=== PATIENT | female | born 1950 | race Asian ===

== ENCOUNTER → 2016-11-06 | Outpatient (CLI) | payer OTHER ==
[~2016-11-06] MED LIST: ASPI-496 PO; ATOR10TA PO; HYDR-3138 PO; HYDR10TA4 PO; INSU100C5 SQ; INSU100V8 SQ; LISI1TAB3 PO; [UNRECOGNIZED DRUG - OTHER] NS
== END | disposition home or self-care (01) ==
LOC: CFH 07:03
PROVIDERS: ATTEND Internal Medicine Cardiovascular Disease
DX: I51.7 Cardiomegaly (principal); I37.1 Nonrheumatic pulmonary valve insufficiency; I08.1 Rheumatic disorders of both mitral and tricuspid valves; I70.0 Atherosclerosis of aorta; J90 Pleural effusion, not elsewhere classified; R91.8 Other nonspecific abnormal finding of lung field; I10 Essential (primary) hypertension; E11.9 Type 2 diabetes mellitus without complications; F17.200 Nicotine dependence, unspecified, uncomplicated
CPT/HCPCS: 71020; 93306

== ENCOUNTER 2016-11-16 12:50 | Inpatient (IN) | payer OTHER, MEDICARE ==
[~2016-11-16] VITALS: Ht 160 cm; Wt 83.1 kg
[2016-11-16] MEDS ORDERED: CEFTRIAXONE PMX 1GM/50ML 50 ML IVPB ONE (14:00)
[2016-11-16 14:21] LABS: BLOOD UREA NITROGEN 20 mg/dL (7-18)
[2016-11-16 14:25] LABS: ASPARTATE AMINO TRANSFERASE 15 U/L (15-37)
[2016-11-16] MEDS ORDERED: OMNIPAQUE 350 MG/ML, 100ML BOTTLE ONE (15:24)
[2016-11-16] MEDS: NICOTINE 21 MG/24 HR PATCH.TD24 TD SCH (18:00)
[2016-11-16] MEDS ORDERED: ACETAMINOPHEN 325 MG TABLET PO PRN (18:00)
[2016-11-16] MEDS: AZITHROMYCIN 500 MG in SODIUM CHLORIDE 0.9% 250 ML IV SCH (18:00)
[2016-11-16] MEDS: ENOXAPARIN 40 MG/0.4 ML SQ SCH (18:00)
[2016-11-16] MEDS: INSULIN ASPART 100 UNITS/ML, PEN SQ-INSULIN SCH ×2 (18:00→21:00)
[2016-11-16] MEDS ORDERED: ONDANSETRON 2MG/ML, 2ML IVPush PRN (18:00)
[2016-11-16] MEDS ORDERED: HYDROcodone/APAP 5/325 TABLET PO PRN (18:00)
[2016-11-16] MEDS ORDERED: POLYETHYLENE GLYCOL 17 GM PACKET PO PRN (18:00)
[2016-11-16] MEDS ORDERED: CEFTRIAXONE 1,000 MG in SODIUM CHLORIDE 0.9% 50 ML IV SCH (18:00)
[2016-11-16 18:18] LABS: BLOOD UREA NITROGEN 18 mg/dL (7-18)
[2016-11-16] MEDS ORDERED: METH750T2 PO (19:50)
[2016-11-16 19:52] VITALS: BP 134/83
[2016-11-16 20:00] VITALS: BP 134/83
[2016-11-16] MEDS ORDERED: ALBUTEROL SULFATE 2.5 MG/3 ML ONE (20:29)
[2016-11-16] MEDS: INSULIN DETEMIR 100 UNITS/ML, PEN SQ-INSULIN SCH (21:00)
[2016-11-16] MEDS ORDERED: ALBUTEROL SULFATE 2.5 MG/3 ML NPPB PRN (21:30)
[2016-11-17 02:13] VITALS: BP 132/82
[2016-11-17 06:31] LABS: BLOOD UREA NITROGEN 17 mg/dL (7-18)
[2016-11-17 06:34] LABS: ASPARTATE AMINO TRANSFERASE 14 U/L (15-37)
[2016-11-17] MEDS: INSULIN ASPART 100 UNITS/ML, PEN SQ-INSULIN SCH ×4 (07:00→20:58)
[2016-11-17 07:23] VITALS: BP 138/85
[2016-11-17] MEDS: PANTOPROZOLE 40MG TABLET PO SCH (08:48)
[2016-11-17] MEDS: ATORVASTATIN 10 MG TABLET PO SCH (08:48)
[2016-11-17 14:17] VITALS: BP 127/92
[2016-11-17] MEDS: CEFTRIAXONE PMX 1GM/50ML 50 ML IV SCH (16:05)
[2016-11-17] MEDS: NICOTINE 21 MG/24 HR PATCH.TD24 TD SCH (18:10)
[2016-11-17] MEDS: ENOXAPARIN 40 MG/0.4 ML SQ SCH (18:11)
[2016-11-17] MEDS: AZITHROMYCIN 500 MG in SODIUM CHLORIDE 0.9% 250 ML IV SCH (18:12)
[2016-11-17 18:40] VITALS: BP 138/83
[2016-11-17] MEDS: INSULIN DETEMIR 100 UNITS/ML, PEN SQ-INSULIN SCH (20:57)
[2016-11-18] VITALS (7 sets, daily range): BP systolic 121–154; BP diastolic 59–83
[2016-11-18] MEDS: morphine SULFATE 10 MG/ML, 1ML IVPush PRN ×2 (01:12→23:12)
[2016-11-18] MEDS ORDERED: LIDOCAINE 2%, 20ML ONE (07:46)
[2016-11-18] MEDS ORDERED: LIDOCAINE GEL 2%, 5ML ONE (07:46)
[2016-11-18] MEDS ORDERED: LIDOCAINE 4% TOPICAL SOLUTION 50 ML ONE (07:46)
[2016-11-18] MEDS ORDERED: EPINEPHRINE SYRINGE 0.1 MG/ML, 10ML ONE (07:46)
[2016-11-18] MEDS: INSULIN ASPART 100 UNITS/ML, PEN SQ-INSULIN SCH ×4 (08:09→20:36)
[2016-11-18] MEDS: LISINOPRIL 10 MG TABLET PO SCH (08:23)
[2016-11-18] MEDS: ATORVASTATIN 10 MG TABLET PO SCH (08:23)
[2016-11-18] MEDS: HYDROCHLOROTHIAZIDE 12.5 MG CAPSULE PO SCH (08:24)
[2016-11-18] MEDS: PANTOPROZOLE 40MG TABLET PO SCH (08:24)
[2016-11-18] MEDS: INSULIN DETEMIR 100 UNITS/ML, PEN SQ-INSULIN SCH ×2 (14:08→20:37)
[2016-11-18] MEDS ORDERED: MIDAZOLAM 1 MG/ML, 5ML ONE (14:27)
[2016-11-18] MEDS ORDERED: FENTANYL PF 100 MCG/2ML ONE (14:27)
[2016-11-18] MEDS: ENOXAPARIN 40 MG/0.4 ML SQ SCH (17:16)
[2016-11-18] MEDS: CEFTRIAXONE PMX 1GM/50ML 50 ML IV SCH (17:26)
[2016-11-18] MEDS: NICOTINE 21 MG/24 HR PATCH.TD24 TD SCH (17:34)
[2016-11-18] MEDS: AZITHROMYCIN 500 MG in SODIUM CHLORIDE 0.9% 250 ML IV SCH (17:58)
[2016-11-19 02:17] VITALS: BP 139/79
[2016-11-19] MEDS: INSULIN ASPART 100 UNITS/ML, PEN SQ-INSULIN SCH ×4 (07:00→20:16)
[2016-11-19 08:20] VITALS: BP 144/77
[2016-11-19] MEDS: ATORVASTATIN 10 MG TABLET PO SCH (08:33)
[2016-11-19] MEDS: HYDROCHLOROTHIAZIDE 12.5 MG CAPSULE PO SCH (08:33)
[2016-11-19] MEDS: LISINOPRIL 10 MG TABLET PO SCH (08:33)
[2016-11-19] MEDS: INSULIN DETEMIR 100 UNITS/ML, PEN SQ-INSULIN SCH ×2 (08:34→20:16)
[2016-11-19] MEDS: PANTOPROZOLE 40MG TABLET PO SCH (08:34)
[2016-11-19 13:10] VITALS: BP 148/73
[2016-11-19] MEDS: CEFTRIAXONE PMX 1GM/50ML 50 ML IV SCH (15:37)
[2016-11-19] MEDS: NICOTINE 21 MG/24 HR PATCH.TD24 TD SCH (18:13)
[2016-11-19] MEDS: AZITHROMYCIN 500 MG in SODIUM CHLORIDE 0.9% 250 ML IV SCH (18:13)
[2016-11-19] MEDS: ENOXAPARIN 40 MG/0.4 ML SQ SCH (18:13)
[2016-11-19 19:41] VITALS: BP 146/84
[2016-11-19] MEDS: morphine SULFATE 10 MG/ML, 1ML IVPush PRN (22:57)
[2016-11-20 00:51] VITALS: BP 131/66
[2016-11-20] MEDS: INSULIN ASPART 100 UNITS/ML, PEN SQ-INSULIN SCH ×4 (07:00→20:54)
[2016-11-20] MEDS: INSULIN DETEMIR 100 UNITS/ML, PEN SQ-INSULIN SCH ×3 (08:26→20:53)
[2016-11-20] MEDS: ATORVASTATIN 10 MG TABLET PO SCH (08:27)
[2016-11-20] MEDS: HYDROCHLOROTHIAZIDE 12.5 MG CAPSULE PO SCH (08:27)
[2016-11-20] MEDS: LISINOPRIL 10 MG TABLET PO SCH (08:27)
[2016-11-20] MEDS: PANTOPROZOLE 40MG TABLET PO SCH (08:27)
[2016-11-20 08:30] VITALS: BP 151/85
[2016-11-20] MEDS: methylPREDNISolone SOD SUCC 125 MG/2 ML IVPush SCH ×2 (12:42→20:52)
[2016-11-20 14:51] VITALS: BP 137/83
[2016-11-20] MEDS ORDERED: NALOXONE 1 MG/ML, 2ML ONE (15:58)
[2016-11-20] MEDS ORDERED: FENTANYL PF 100 MCG/2ML ONE (15:58)
[2016-11-20] MEDS: ENOXAPARIN 40 MG/0.4 ML SQ SCH (17:23)
[2016-11-20] MEDS: CEFTRIAXONE PMX 1GM/50ML 50 ML IV SCH (17:23)
[2016-11-20] MEDS: NICOTINE 21 MG/24 HR PATCH.TD24 TD SCH (17:23)
[2016-11-20 18:26] VITALS: BP 130/76
[2016-11-20] MEDS: AZITHROMYCIN 500 MG in SODIUM CHLORIDE 0.9% 250 ML IV SCH (18:36)
[2016-11-20] MEDS: morphine SULFATE 10 MG/ML, 1ML IVPush PRN (23:04)
[2016-11-21 02:00] VITALS: BP 129/80
[2016-11-21] MEDS: ATORVASTATIN 10 MG TABLET PO SCH (07:47)
[2016-11-21] MEDS: PANTOPROZOLE 40MG TABLET PO SCH (07:47)
[2016-11-21] MEDS: methylPREDNISolone SOD SUCC 125 MG/2 ML IVPush SCH ×2 (07:47→20:25)
[2016-11-21] MEDS: LISINOPRIL 10 MG TABLET PO SCH (07:47)
[2016-11-21] MEDS: HYDROCHLOROTHIAZIDE 12.5 MG CAPSULE PO SCH (07:47)
[2016-11-21] MEDS: INSULIN DETEMIR 100 UNITS/ML, PEN SQ-INSULIN SCH ×2 (07:48→20:26)
[2016-11-21] MEDS: INSULIN ASPART 100 UNITS/ML, PEN SQ-INSULIN SCH ×4 (07:49→20:26)
[2016-11-21 08:00] VITALS: BP 156/68
[2016-11-21 13:34] VITALS: BP 134/84
[2016-11-21] MEDS: CEFTRIAXONE PMX 1GM/50ML 50 ML IV SCH (14:54)
[2016-11-21] MEDS: AZITHROMYCIN 500 MG in SODIUM CHLORIDE 0.9% 250 ML IV SCH (17:40)
[2016-11-21] MEDS: ENOXAPARIN 40 MG/0.4 ML SQ SCH (17:40)
[2016-11-21] MEDS: NICOTINE 21 MG/24 HR PATCH.TD24 TD SCH (17:41)
[2016-11-21 19:30] VITALS: BP 152/80
[2016-11-21] MEDS: morphine SULFATE 10 MG/ML, 1ML IVPush PRN (22:43)
[2016-11-22 01:25] VITALS: BP 152/95
[2016-11-22 07:20] VITALS: BP 158/83
[2016-11-22] MEDS: INSULIN ASPART 100 UNITS/ML, PEN SQ-INSULIN SCH ×4 (08:00→20:16)
[2016-11-22] MEDS: methylPREDNISolone SOD SUCC 125 MG/2 ML IVPush SCH ×2 (08:03→20:16)
[2016-11-22] MEDS: LISINOPRIL 10 MG TABLET PO SCH (08:04)
[2016-11-22] MEDS: PANTOPROZOLE 40MG TABLET PO SCH (08:04)
[2016-11-22] MEDS: ATORVASTATIN 10 MG TABLET PO SCH (08:04)
[2016-11-22] MEDS: HYDROCHLOROTHIAZIDE 12.5 MG CAPSULE PO SCH (08:04)
[2016-11-22] MEDS: INSULIN DETEMIR 100 UNITS/ML, PEN SQ-INSULIN SCH ×2 (08:05→20:16)
[2016-11-22 13:24] VITALS: BP 164/90
[2016-11-22] MEDS: CEFTRIAXONE PMX 1GM/50ML 50 ML IV SCH (15:52)
[2016-11-22 18:22] VITALS: BP 159/93
[2016-11-22] MEDS: NICOTINE 21 MG/24 HR PATCH.TD24 TD SCH (18:29)
[2016-11-22] MEDS: ENOXAPARIN 40 MG/0.4 ML SQ SCH (18:29)
[2016-11-22] MEDS: AZITHROMYCIN 500 MG in SODIUM CHLORIDE 0.9% 250 ML IV SCH (18:31)
[2016-11-22] MEDS: morphine SULFATE 10 MG/ML, 1ML IVPush PRN (21:14)
[2016-11-23 01:40] VITALS: BP 148/84
[2016-11-23 06:56] VITALS: BP 142/87
[2016-11-23] MEDS: INSULIN ASPART 100 UNITS/ML, PEN SQ-INSULIN SCH ×4 (07:55→21:44)
[2016-11-23] MEDS: methylPREDNISolone SOD SUCC 125 MG/2 ML IVPush SCH ×2 (07:55→21:43)
[2016-11-23] MEDS: HYDROCHLOROTHIAZIDE 12.5 MG CAPSULE PO SCH (07:55)
[2016-11-23] MEDS: INSULIN DETEMIR 100 UNITS/ML, PEN SQ-INSULIN SCH ×2 (07:55→21:44)
[2016-11-23] MEDS: ATORVASTATIN 10 MG TABLET PO SCH (07:56)
[2016-11-23] MEDS: PANTOPROZOLE 40MG TABLET PO SCH (07:56)
[2016-11-23] MEDS: LISINOPRIL 10 MG TABLET PO SCH (07:56)
[2016-11-23 14:33] VITALS: BP 139/85
[2016-11-23] MEDS: CEFTRIAXONE PMX 1GM/50ML 50 ML IV SCH (15:08)
[2016-11-23] MEDS: ENOXAPARIN 40 MG/0.4 ML SQ SCH (18:04)
[2016-11-23] MEDS: AZITHROMYCIN 500 MG in SODIUM CHLORIDE 0.9% 250 ML IV SCH (18:04)
[2016-11-23] MEDS: NICOTINE 21 MG/24 HR PATCH.TD24 TD SCH (18:04)
[2016-11-23 18:33] VITALS: BP 143/84
[2016-11-23] MEDS: morphine SULFATE 10 MG/ML, 1ML IVPush PRN (22:37)
[2016-11-24 00:58] VITALS: BP 156/97
[2016-11-24] MEDS: methylPREDNISolone SOD SUCC 125 MG/2 ML IVPush SCH ×2 (08:22→20:51)
[2016-11-24] MEDS: INSULIN DETEMIR 100 UNITS/ML, PEN SQ-INSULIN SCH ×2 (08:22→20:52)
[2016-11-24] MEDS: HYDROCHLOROTHIAZIDE 12.5 MG CAPSULE PO SCH (08:23)
[2016-11-24] MEDS: ATORVASTATIN 10 MG TABLET PO SCH (08:23)
[2016-11-24] MEDS: LISINOPRIL 10 MG TABLET PO SCH (08:23)
[2016-11-24] MEDS: PANTOPROZOLE 40MG TABLET PO SCH (08:23)
[2016-11-24] MEDS: INSULIN ASPART 100 UNITS/ML, PEN SQ-INSULIN SCH ×4 (08:24→20:52)
[2016-11-24 08:30] VITALS: BP 138/78
[2016-11-24 14:07] VITALS: BP 148/84
[2016-11-24] MEDS: CEFTRIAXONE PMX 1GM/50ML 50 ML IV SCH (15:11)
[2016-11-24 18:46] VITALS: BP_SYST 167; BP_SYST 173; BP_DIAS 105; BP_DIAS 87
[2016-11-24] MEDS: AZITHROMYCIN 500 MG in SODIUM CHLORIDE 0.9% 250 ML IV SCH (20:51)
[2016-11-24] MEDS: NICOTINE 21 MG/24 HR PATCH.TD24 TD SCH (20:51)
[2016-11-24] MEDS: ENOXAPARIN 40 MG/0.4 ML SQ SCH (20:52)
[2016-11-24] MEDS: morphine SULFATE 10 MG/ML, 1ML IVPush PRN (21:53)
[2016-11-25 01:03] VITALS: BP 156/95
[2016-11-25] MEDS: morphine SULFATE 10 MG/ML, 1ML IVPush PRN ×2 (01:03→20:44)
[2016-11-25] MEDS: PANTOPROZOLE 40MG TABLET PO SCH (08:57)
[2016-11-25] MEDS: LISINOPRIL 10 MG TABLET PO SCH (08:57)
[2016-11-25] MEDS: HYDROCHLOROTHIAZIDE 12.5 MG CAPSULE PO SCH (08:57)
[2016-11-25] MEDS: ATORVASTATIN 10 MG TABLET PO SCH (08:57)
[2016-11-25] MEDS: methylPREDNISolone SOD SUCC 125 MG/2 ML IVPush SCH ×2 (08:58→20:49)
[2016-11-25 09:00] VITALS: BP 151/74
[2016-11-25] MEDS: INSULIN DETEMIR 100 UNITS/ML, PEN SQ-INSULIN SCH ×2 (09:28→20:59)
[2016-11-25] MEDS: INSULIN ASPART 100 UNITS/ML, PEN SQ-INSULIN SCH ×4 (09:29→20:58)
[2016-11-25 10:21] VITALS: BP 171/109
[2016-11-25 13:27] VITALS: BP 151/82
[2016-11-25 16:37] LABS: BLOOD UREA NITROGEN 15 mg/dL (7-18)
[2016-11-25] MEDS: NS + 20MEQ KCL 1,000 ML IV SCH (17:46)
[2016-11-25] MEDS: CEFTRIAXONE PMX 1GM/50ML 50 ML IV SCH (17:46)
[2016-11-25] MEDS ORDERED: SODIUM CHLORIDE 0.9% 500 ML IV ONE ×2 (18:00→23:00)
[2016-11-25] MEDS ORDERED: FOSAPREPITANT 150 MG in SODIUM CHLORIDE 0.9% 150 ML IV ONE (18:00)
[2016-11-25] MEDS ORDERED: ONDANSETRON 16 MG, DEXAMETHASONE 12 MG in SODIUM CHLORIDE 0.9% 50 ML IVPB SCH (18:00)
[2016-11-25] MEDS: AZITHROMYCIN 500 MG in SODIUM CHLORIDE 0.9% 250 ML IV SCH (18:13)
[2016-11-25] MEDS: ENOXAPARIN 40 MG/0.4 ML SQ SCH (18:13)
[2016-11-25] MEDS: NICOTINE 21 MG/24 HR PATCH.TD24 TD SCH (18:13)
[2016-11-25] MEDS ORDERED: MANNITOL IV ONE (19:00)
[2016-11-25] MEDS ORDERED: [UNRECOGNIZED DRUG - OTHER] IV ONE (19:00)
[2016-11-25] MEDS ORDERED: CISPLATIN IV ONE (19:00)
[2016-11-25] MEDS ORDERED: MAGNESIUM SULFATE IV ONE (19:00)
[2016-11-25 19:40] VITALS: BP 140/82
[2016-11-25] MEDS ORDERED: ETOPOSIDE 180 MG in SODIUM CHLORIDE 0.9% 500 ML IV SCH (22:00)
[2016-11-25] MEDS ORDERED: MORPHINE SULFATE 4 MG/ML, 1ML ONE (23:55)
[2016-11-26] MEDS: morphine SULFATE 10 MG/ML, 1ML IVPush PRN ×3 (00:01→21:39)
[2016-11-26 01:16] VITALS: BP 154/86
[2016-11-26] MEDS: NS + 20MEQ KCL 1,000 ML IV SCH ×2 (05:10→15:20)
[2016-11-26] MEDS ORDERED: MORPHINE SULFATE 4 MG/ML, 1ML ONE (05:55)
[2016-11-26] MEDS: INSULIN ASPART 100 UNITS/ML, PEN SQ-INSULIN SCH ×4 (07:00→21:38)
[2016-11-26 07:18] VITALS: BP 121/76
[2016-11-26] MEDS: PANTOPROZOLE 40MG TABLET PO SCH (07:39)
[2016-11-26] MEDS: methylPREDNISolone SOD SUCC 125 MG/2 ML IVPush SCH ×2 (07:39→21:18)
[2016-11-26] MEDS: INSULIN DETEMIR 100 UNITS/ML, PEN SQ-INSULIN SCH ×2 (07:39→21:38)
[2016-11-26] MEDS: LISINOPRIL 10 MG TABLET PO SCH (07:39)
[2016-11-26] MEDS: HYDROCHLOROTHIAZIDE 12.5 MG CAPSULE PO SCH (07:40)
[2016-11-26] MEDS: ATORVASTATIN 10 MG TABLET PO SCH ×2 (09:00→21:19)
[2016-11-26 09:49] LABS: BLOOD UREA NITROGEN 14 mg/dL (7-18)
[2016-11-26 09:52] LABS: ASPARTATE AMINO TRANSFERASE 9 U/L (15-37)
[2016-11-26 13:52] VITALS: BP 151/81
[2016-11-26] MEDS: CEFTRIAXONE PMX 1GM/50ML 50 ML IV SCH (14:30)
[2016-11-26] MEDS: AZITHROMYCIN 500 MG in SODIUM CHLORIDE 0.9% 250 ML IV SCH (18:36)
[2016-11-26] MEDS: NICOTINE 21 MG/24 HR PATCH.TD24 TD SCH (18:36)
[2016-11-26] MEDS: ENOXAPARIN 40 MG/0.4 ML SQ SCH (18:36)
[2016-11-26 19:58] VITALS: BP 164/102
[2016-11-26] MEDS: ENALAPRILAT 1.25 MG/ML, 2ML IVPush PRN (21:18)
[2016-11-26] MEDS: ONDANSETRON 16 MG, DEXAMETHASONE 12 MG in SODIUM CHLORIDE 0.9% 50 ML IVPB SCH (22:11)
[2016-11-27 01:35] VITALS: BP 162/94
[2016-11-27] MEDS: ETOPOSIDE 180 MG in SODIUM CHLORIDE 0.9% 500 ML IV SCH (04:04)
[2016-11-27] MEDS: NS + 20MEQ KCL 1,000 ML IV SCH ×2 (05:39→18:04)
[2016-11-27 06:00] LABS: ASPARTATE AMINO TRANSFERASE 18 U/L (15-37); BLOOD UREA NITROGEN 17 mg/dL (7-18)
[2016-11-27] MEDS: INSULIN ASPART 100 UNITS/ML, PEN SQ-INSULIN SCH ×4 (07:00→21:46)
[2016-11-27 07:21] VITALS: BP 139/82
[2016-11-27] MEDS: methylPREDNISolone SOD SUCC 125 MG/2 ML IVPush SCH (08:27)
[2016-11-27] MEDS: INSULIN DETEMIR 100 UNITS/ML, PEN SQ-INSULIN SCH ×2 (08:29→21:46)
[2016-11-27] MEDS: HYDROCHLOROTHIAZIDE 12.5 MG CAPSULE PO SCH (08:30)
[2016-11-27] MEDS: PANTOPROZOLE 40MG TABLET PO SCH (08:30)
[2016-11-27] MEDS: LISINOPRIL 10 MG TABLET PO SCH (08:30)
[2016-11-27 14:50] VITALS: BP 149/89
[2016-11-27] MEDS: CEFTRIAXONE PMX 1GM/50ML 50 ML IV SCH (15:12)
[2016-11-27] MEDS ORDERED: ONDANSETRON 2MG/ML, 2ML IVPush PRN (17:00)
[2016-11-27] MEDS ORDERED: POLYETHYLENE GLYCOL 17 GM PACKET PO PRN (17:00)
[2016-11-27] MEDS: AZITHROMYCIN 500 MG in SODIUM CHLORIDE 0.9% 250 ML IV SCH (18:00)
[2016-11-27] MEDS: NICOTINE 21 MG/24 HR PATCH.TD24 TD SCH (18:02)
[2016-11-27] MEDS: ENOXAPARIN 40 MG/0.4 ML SQ SCH (18:07)
[2016-11-27] MEDS: DEXAMETHASONE 4 MG TABLET PO SCH (19:30)
[2016-11-27] MEDS: ATORVASTATIN 10 MG TABLET PO SCH (21:45)
[2016-11-27] MEDS: NYSTATIN 500,000 UNITS/5 ML UDC PO SCH (21:45)
[2016-11-27] MEDS: morphine SULFATE 10 MG/ML, 1ML IVPush PRN (21:46)
[2016-11-27 22:04] VITALS: BP 158/104
[2016-11-27] MEDS: ONDANSETRON 16 MG, DEXAMETHASONE 12 MG in SODIUM CHLORIDE 0.9% 50 ML IVPB SCH (22:13)
[2016-11-28 01:37] VITALS: BP 189/91
[2016-11-28] MEDS: ENALAPRILAT 1.25 MG/ML, 2ML IVPush PRN (01:46)
[2016-11-28] MEDS: ETOPOSIDE 180 MG in SODIUM CHLORIDE 0.9% 500 ML IV SCH (03:55)
[2016-11-28 05:15] LABS: ASPARTATE AMINO TRANSFERASE 17 U/L (15-37); BLOOD UREA NITROGEN 17 mg/dL (7-18)
[2016-11-28] MEDS: NYSTATIN 500,000 UNITS/5 ML UDC PO SCH ×2 (05:43→11:39)
[2016-11-28 07:07] VITALS: BP 153/92
[2016-11-28] MEDS: INSULIN ASPART 100 UNITS/ML, PEN SQ-INSULIN SCH ×2 (08:02→11:41)
[2016-11-28] MEDS: PANTOPROZOLE 40MG TABLET PO SCH (08:15)
[2016-11-28] MEDS: NS + 20MEQ KCL 1,000 ML IV SCH (08:15)
[2016-11-28] MEDS: INSULIN DETEMIR 100 UNITS/ML, PEN SQ-INSULIN SCH (08:15)
[2016-11-28] MEDS: HYDROCHLOROTHIAZIDE 12.5 MG CAPSULE PO SCH (08:15)
[2016-11-28] MEDS: DEXAMETHASONE 4 MG TABLET PO SCH (08:15)
[2016-11-28] MEDS: LISINOPRIL 10 MG TABLET PO SCH (08:15)
[2016-11-28 12:45] VITALS: BP 142/92
[2016-11-28] MEDS ORDERED: PANT40TA5 PO (12:55)
[2016-11-28] MEDS ORDERED: POLY17PO5 PO (12:55)
[2016-11-28] MEDS ORDERED: NYST1000 PO (12:55)
[2016-11-28] MEDS ORDERED: DEXA4TAB PO (12:55)
[2016-11-28] MEDS ORDERED: DOXY-168 PO (13:00)
[2016-11-28] MEDS ORDERED: CEFD300C37 PO (13:00)
[2016-11-28] MEDS ORDERED: LACT1CAP33 PO (13:00)
[2016-11-28] MEDS: CEFTRIAXONE PMX 1GM/50ML 50 ML IV SCH (15:00)
== END 2016-11-28 15:30 | disposition home or self-care (01) | DRG 166 ==
LOC: ED 14:03 → SUATTDRO 16:58 → EDIP 17:40 → 4WST 19:08 → 3NW 11-25 10:13
PROVIDERS: ADMIT Internal Medicine; ATTEND Family Medicine
PROC: 0BBC8ZX Excision of Right Upper Lung Lobe, Via Natural or Artificial Opening Endoscopic, Diagnostic (ICD-10-PCS; 2016-11-18)
PROC: 0B9C8ZX Drainage of Right Upper Lung Lobe, Via Natural or Artificial Opening Endoscopic, Diagnostic (ICD-10-PCS; 2016-11-18)
PROC: 0BB48ZX Excision of Right Upper Lobe Bronchus, Via Natural or Artificial Opening Endoscopic, Diagnostic (ICD-10-PCS; 2016-11-18)
PROC: 0BB13ZX Excision of Trachea, Percutaneous Approach, Diagnostic (ICD-10-PCS; 2016-11-20)
PROC: [UNRECOGNIZED PROCEDURE] (principal; 2016-11-25)
PROC: 3E03305 Introduction of Other Antineoplastic into Peripheral Vein, Percutaneous Approach (ICD-10-PCS; 2016-11-25)
DX: C34.91 Malignant neoplasm of unspecified part of right bronchus or lung (principal); J96.01 Acute respiratory failure with hypoxia; E43 Unspecified severe protein-calorie malnutrition; J18.8 Other pneumonia, unspecified organism; E87.1 Hypo-osmolality and hyponatremia; J90 Pleural effusion, not elsewhere classified; I87.1 Compression of vein; E11.9 Type 2 diabetes mellitus without complications; E78.5 Hyperlipidemia, unspecified; E66.01 Morbid (severe) obesity due to excess calories; I10 Essential (primary) hypertension; K59.09 Other constipation; M47.812 Spondylosis without myelopathy or radiculopathy, cervical region; G89.29 Other chronic pain; E78.00 Pure hypercholesterolemia, unspecified; Z90.710 Acquired absence of both cervix and uterus; Z68.32 Body mass index [BMI] 32.0-32.9, adult; Z90.722 Acquired absence of ovaries, bilateral; Z98.1 Arthrodesis status; Z90.13 Acquired absence of bilateral breasts and nipples; Z80.3 Family history of malignant neoplasm of breast; Z80.0 Family history of malignant neoplasm of digestive organs; F17.210 Nicotine dependence, cigarettes, uncomplicated; Z88.0 Allergy status to penicillin; Z82.49 Family history of ischemic heart disease and other diseases of the circulatory system; Z79.82 Long term (current) use of aspirin; Z79.4 Long term (current) use of insulin; Z79.899 Other long term (current) drug therapy; Z85.43 Personal history of malignant neoplasm of ovary; Z92.21 Personal history of antineoplastic chemotherapy; Z15.01 Genetic susceptibility to malignant neoplasm of breast
CPT/HCPCS: 31623; 31624; 31628; 31629; 32405; 36415; 70553; 71010; 71275; 77012; 77290; 77295; 77300; 77334; 80048; 80053; 82962; 83036; 83605; 83735; 84100; 84145; 84443; 85025; 85610; 87040; 88104; 88112; 88305; 88341; 88342; 88360; 93005; 94640; 96365; 96366; 99151; 99152; J0456; J0696; J1100; J1453; J1650; J1815; J2250; J2405; J3010; J3475; J3480; J3490; J7613; J9060; J9181; Q9967; G0461; J2150; J2270; J2310; J2930; J7030; J7040; J7050

== ENCOUNTER → 2016-12-24 | Outpatient (CLI) | payer OTHER ==
[~2016-12-24] MED LIST changes: +ACIDOPHILUS PROB1 MG PO; +CEFD300C37 PO; +DEXA4TAB PO; +DOXY-168 PO; +METH750T2 PO; +NYST1000 PO; +PANT40TA5 PO; +POLY17PO5 PO
== END | disposition home or self-care (01) ==
LOC: PETCFH 08:11
PROVIDERS: ATTEND Radiology Radiation Oncology
DX: C34.11 Malignant neoplasm of upper lobe, right bronchus or lung (principal); I10 Essential (primary) hypertension; E11.9 Type 2 diabetes mellitus without complications
CPT/HCPCS: 78815; A9552

== ENCOUNTER → 2017-02-22 | Outpatient (CLI) | payer OTHER ==
[~2017-02-22] MED LIST changes: -DOXY-168 PO; +DOXY100T10 PO; +GADOBUTROL 7.5 MMOL/7.5 ML PFS ONE; -HYDR-3138 PO; +HYDR-3237 PO; +OMNIPAQUE 350 MG/ML, 100ML BOTTLE ONE
== END ==
LOC: CFH 07:33
PROVIDERS: ATTEND Radiology Radiation Oncology
DX: C34.11 Malignant neoplasm of upper lobe, right bronchus or lung (principal); C79.31 Secondary malignant neoplasm of brain; G31.9 Degenerative disease of nervous system, unspecified; K80.20 Calculus of gallbladder without cholecystitis without obstruction; K86.89 Other specified diseases of pancreas; D73.89 Other diseases of spleen; N28.1 Cyst of kidney, acquired; I70.0 Atherosclerosis of aorta; I10 Essential (primary) hypertension; E11.9 Type 2 diabetes mellitus without complications
CPT/HCPCS: 70553; 71260; 74177; A9585; Q9967

== ENCOUNTER → 2017-03-12 | Outpatient (CLI) | payer OTHER ==
[~2017-03-12] MED LIST changes: -GADOBUTROL 7.5 MMOL/7.5 ML PFS ONE; -OMNIPAQUE 350 MG/ML, 100ML BOTTLE ONE
== END | disposition home or self-care (01) ==
LOC: ROC 07:18
PROVIDERS: ATTEND Radiology Radiation Oncology
DX: C34.90 Malignant neoplasm of unspecified part of unspecified bronchus or lung (principal)
CPT/HCPCS: 99213; G0463

== ENCOUNTER → 2017-05-25 | Outpatient (CLI) | payer OTHER ==
[~2017-05-25] MED LIST changes: +OMNIPAQUE 350 MG/ML, 100ML BOTTLE ONE
== END | disposition home or self-care (01) ==
LOC: CFH 08:59
PROVIDERS: ATTEND Radiology Radiation Oncology
DX: N28.1 Cyst of kidney, acquired (principal); K86.89 Other specified diseases of pancreas; K76.89 Other specified diseases of liver; D73.89 Other diseases of spleen; K80.20 Calculus of gallbladder without cholecystitis without obstruction; C34.11 Malignant neoplasm of upper lobe, right bronchus or lung; I10 Essential (primary) hypertension
CPT/HCPCS: 71260; 74177; 82565; Q9967

== ENCOUNTER → 2017-05-27 | Outpatient (CLI) | payer OTHER ==
[~2017-05-27] MED LIST changes: -OMNIPAQUE 350 MG/ML, 100ML BOTTLE ONE
== END | disposition home or self-care (01) ==
LOC: ROC 07:43
PROVIDERS: ATTEND Radiology Radiation Oncology
DX: Z08 Encounter for follow-up examination after completed treatment for malignant neoplasm (principal); R91.8 Other nonspecific abnormal finding of lung field; E11.9 Type 2 diabetes mellitus without complications; Z90.13 Acquired absence of bilateral breasts and nipples; Z88.0 Allergy status to penicillin; Z79.4 Long term (current) use of insulin; Z15.01 Genetic susceptibility to malignant neoplasm of breast; Z85.43 Personal history of malignant neoplasm of ovary
CPT/HCPCS: 99213; G0463

== ENCOUNTER → 2017-09-24 | Outpatient (CLI) | payer OTHER ==
[~2017-09-24] MED LIST changes: +OMNIPAQUE 350 MG/ML, 100ML BOTTLE ONE
== END | disposition home or self-care (01) ==
LOC: CFH 10:38
PROVIDERS: ATTEND Radiology Radiation Oncology
DX: C34.11 Malignant neoplasm of upper lobe, right bronchus or lung (principal); R91.1 Solitary pulmonary nodule; I10 Essential (primary) hypertension
CPT/HCPCS: 71260; 74177; Q9967

== ENCOUNTER → 2017-10-25 | Outpatient (CLI) | payer OTHER ==
[~2017-10-25] MED LIST changes: -OMNIPAQUE 350 MG/ML, 100ML BOTTLE ONE
== END | disposition home or self-care (01) ==
LOC: PETCFH 09:32
PROVIDERS: ATTEND Radiology Radiation Oncology
DX: C34.11 Malignant neoplasm of upper lobe, right bronchus or lung (principal); R91.8 Other nonspecific abnormal finding of lung field
CPT/HCPCS: 78815; A9552

== ENCOUNTER → 2018-01-28 | Outpatient (CLI) | payer OTHER ==
[~2018-01-28] MED LIST changes: +OMNIPAQUE 350 MG/ML, 75ML BOTTLE ONE
== END | disposition home or self-care (01) ==
LOC: CFH 10:28
PROVIDERS: ATTEND Internal Medicine Hematology & Oncology
DX: Z08 Encounter for follow-up examination after completed treatment for malignant neoplasm (principal); J43.2 Centrilobular emphysema; R91.1 Solitary pulmonary nodule
CPT/HCPCS: 71260; 82565; Q9967

== ENCOUNTER → 2018-02-03 | Outpatient (CLI) | payer OTHER ==
[~2018-02-03] MED LIST changes: -OMNIPAQUE 350 MG/ML, 75ML BOTTLE ONE
== END | disposition home or self-care (01) ==
LOC: ROC 07:18
PROVIDERS: ATTEND Radiology Radiation Oncology
DX: Z08 Encounter for follow-up examination after completed treatment for malignant neoplasm (principal); E11.9 Type 2 diabetes mellitus without complications; F17.200 Nicotine dependence, unspecified, uncomplicated; Z88.0 Allergy status to penicillin; Z85.43 Personal history of malignant neoplasm of ovary
CPT/HCPCS: 99212; G0463

== ENCOUNTER → 2018-04-26 | Outpatient (CLI) | payer OTHER | END | disposition home or self-care (01) | LOC: CFH 08:36 | PROVIDERS: ATTEND Internal Medicine Hematology & Oncology | DX: J98.4 Other disorders of lung (principal); N28.1 Cyst of kidney, acquired; C34.11 Malignant neoplasm of upper lobe, right bronchus or lung | CPT/HCPCS: 71250 ==

== ENCOUNTER → 2018-06-03 | Outpatient (CLI) | payer OTHER ==
[~2018-06-03] MED LIST changes: +INSU100C SQ-INSULIN
[2018-06-03 13:56] LABS: BASOPHILS # (AUTO) 0.01 x10^3/uL (0-0.1); BASOPHILS % (AUTO) 0 % (0-1); EOSINOPHILS # (AUTO) 0.04 x10^3/uL (0-0.4); EOSINOPHILS % (AUTO) 1 % (1-7); LYMPHOCYTES # (AUTO) 0.35 x10^3/uL (1-3.4); LYMPHOCYTES % (AUTO) 5 % (22-44); MD NO; MEAN CORPUSCULAR HEMOGLOBIN 26.8 pg (27.0-34.8); MEAN CORPUSCULAR HGB CONC 32.7 g/dL (32.4-35.8); MEAN CORPUSCULAR VOLUME 82.1 fL (80-100); MEAN PLATELET VOLUME 7.5 fL (7.4-10.4); MONOCYTES # (AUTO) 0.35 x10^3/uL (0.2-0.8); MONOCYTES % (AUTO) 5 % (2-9); NEUTROPHILS # (AUTO) 6.32 x10^3/uL (1.8-6.8); NEUTROPHILS % (AUTO) 90 % (42-75); PLATELET COUNT 228 x10^3/uL (130-400); RED BLOOD COUNT 4.78 x10^6/uL (3.82-5.3); RED CELL DISTRIBUTION WIDTH 14.3 % (9.6-15.2)
[2018-06-03 14:00] LABS: INTERNATIONAL NORMALIZED RATIO 0.95 (0.93-1.1); PROTHROMBIN TIME 10.1 Seconds (9.6-11.5)
[2018-06-03 14:01] LABS: ALANINE AMINOTRANSFERASE 21 U/L (12-78); ALBUMIN 3.9 g/dL (3.4-5.0); ANION GAP 8 mmol/L (5-15); CALCIUM 9.2 mg/dL (8.5-10.1); CHLORIDE 99 mmol/L (98-107); CREATININE 1.13 mg/dL (0.55-1.02)
[2018-06-03 14:04] LABS: ALKALINE PHOSPHATASE 126 U/L (45-117); BILIRUBIN,TOTAL 0.4 mg/dL (0.2-1.0); TOTAL PROTEIN 7.7 g/dL (6.4-8.2)
[2018-06-03 14:15] LABS: HEMOGLOBIN A1C 7.6 % (4.2-6.3)
== END | disposition home or self-care (01) ==
LOC: STAR 12:38
PROVIDERS: ATTEND Neurological Surgery
DX: Z01.818 Encounter for other preprocedural examination (principal); C79.31 Secondary malignant neoplasm of brain
CPT/HCPCS: 36415; 71046; 80053; 83036; 85025; 85610; 85730; 93005

== ENCOUNTER 2018-06-08 05:40 | Inpatient (IN) | payer OTHER, MEDICARE ==
[~2018-06-08] VITALS: Ht 160 cm; Wt 64.2 kg
[2018-06-08] MEDS ORDERED: LACTATED RINGERS 1,000 ML IV SCH (06:37)
[2018-06-08] MEDS ORDERED: MANNITOL PMX 20% 0 ML ONE (06:53)
[2018-06-08] MEDS ORDERED: THROMBIN SPRAY 20,000 UNIT SPRAY TP ONE (06:53)
[2018-06-08] MEDS ORDERED: METHYLENE BLUE 10 MG/ML 10ML ONE (06:53)
[2018-06-08] MEDS ORDERED: BUPIVACAINE/PF-EPI 0.5% 1:200K ONE (06:53)
[2018-06-08] MEDS ORDERED: FUROSEMIDE 20 MG/2 ML ONE (06:53)
[2018-06-08] MEDS ORDERED: BACITRACIN 50,000 UNIT ONE (06:54)
[2018-06-08] MEDS ORDERED: LORazepam 2 MG/ML, 1ML IVPush PRN (07:00)
[2018-06-08] MEDS ORDERED: EPHEDRINE 50 MG/ML, 1ML IVPush PRN (07:00)
[2018-06-08] MEDS ORDERED: METOPROLOL 1 MG/ML, 5ML IV PRN (07:00)
[2018-06-08] MEDS ORDERED: ALBUTEROL SULFATE 2.5 MG/3 ML NPPB PRN (07:00)
[2018-06-08] MEDS ORDERED: METOCLOPRAMIDE 5 MG/ML, 2ML IV PRN (07:00)
[2018-06-08] MEDS ORDERED: hydrALAzine 20 MG/ML, 1ML IV PRN (07:00)
[2018-06-08] MEDS ORDERED: MEPERIDINE/PF 25MG/0.5ML IVPush PRN (07:00)
[2018-06-08] MEDS ORDERED: REMIFENTANIL 2 MG ONE (07:01)
[2018-06-08] MEDS ORDERED: PROPOFOL 50 ML ONE ×3 (07:12→10:09)
[2018-06-08] MEDS ORDERED: MIDAZOLAM 1 MG/ML, 2ML ONE (07:16)
[2018-06-08] MEDS ORDERED: SUGAMMADEX 200 MG/2 ML IVPush ONE (07:19)
[2018-06-08] MEDS ORDERED: KETAMINE 100 MG/ML, 5ML ONE (07:30)
[2018-06-08] MEDS ORDERED: DEXAMETHASONE 4 MG/ML, 1ML ONE ×2 (07:30→13:08)
[2018-06-08] MEDS ORDERED: ONDANSETRON 2MG/ML, 2ML ONE ×2 (07:30→11:51)
[2018-06-08] MEDS ORDERED: LABETALOL 20 MG/4 ML ONE (07:30)
[2018-06-08] MEDS ORDERED: CEFAZOLIN 1,000 MG ONE (07:30)
[2018-06-08] MEDS ORDERED: ROCURONIUM 10 MG/ML,10ML ONE (07:30)
[2018-06-08] MEDS ORDERED: PHENYLEPHRINE 10 MG/ML ONE (07:30)
[2018-06-08] MEDS ORDERED: THROMBIN 5,000 UNIT VIAL TP ONE ×2 (08:18→09:49)
[2018-06-08] MEDS ORDERED: INSULIN SINGLE DOSE, ER SQ-INSULIN ONE (08:59)
[2018-06-08] MEDS ORDERED: BACITRACIN 50,000 UNIT IM ONE (09:47)
[2018-06-08] MEDS ORDERED: BUPIVACAINE/PF-EPI 0.5% 1:200K INFIL ONE (09:48)
[2018-06-08] MEDS ORDERED: FENTANYL PF 100 MCG/2ML ONE ×2 (10:22→11:51)
[2018-06-08] MEDS ORDERED: hydrALAzine 20 MG/ML, 1ML ONE (11:41)
[2018-06-08] MEDS ORDERED: OXYcodone 5 MG/5 ML ORAL.SOL UDC ONE ×2 (11:51→12:25)
[2018-06-08] MEDS ORDERED: ACETAMINOPHEN 650 MG/20.3 ML UDC ONE (11:52)
[2018-06-08] MEDS: FENTANYL PF 100 MCG/2ML IV PRN ×3 (11:55→12:40)
[2018-06-08] MEDS: OXYcodone 5 MG/5 ML ORAL.SOL UDC PO PRN ×2 (11:55→12:30)
[2018-06-08] MEDS ORDERED: HYDROmorphone 2 MG/ML, 1ML ONE (12:11)
[2018-06-08] MEDS: HYDROmorphone 2 MG/ML, 1ML IVPush PRN ×5 (12:12→12:35)
[2018-06-08] MEDS ORDERED: METOPROLOL 1 MG/ML, 5ML ONE (12:22)
[2018-06-08] MEDS ORDERED: ACETAMINOPHEN 325 MG TABLET PO PRN (12:30)
[2018-06-08] MEDS ORDERED: OXYcodone/APAP 5/325MG TABLET PO PRN (14:30)
[2018-06-08] MEDS ORDERED: ACETAMINOPHEN 650 MG SUPP PR PRN (14:30)
[2018-06-08] MEDS: DEXAMETHASONE 4 MG/ML, 1ML IVPush SCH ×3 (16:00→21:03)
[2018-06-08] MEDS: NS + 20MEQ KCL 1,000 ML IV SCH (16:06)
[2018-06-08] MEDS: CEFUROXIME 1.5 GM in SODIUM CHLORIDE 0.9% 50 ML IVPB SCH (16:07)
[2018-06-08] MEDS: INSULIN LISPRO 100 UNITS/ML, PEN SQ-INSULIN SCH ×2 (16:38→21:03)
[2018-06-08] MEDS: ATORVASTATIN 10 MG TABLET PO SCH (21:03)
[2018-06-08] MEDS: INSULIN GLARGINE 100 UNITS/ML, PEN SQ-INSULIN SCH (21:04)
[2018-06-09] MEDS: hydrALAzine 20 MG/ML, 1ML IV PRN (00:05)
[2018-06-09] MEDS: CEFUROXIME 1.5 GM in SODIUM CHLORIDE 0.9% 50 ML IVPB SCH (00:05)
[2018-06-09] MEDS ORDERED: HALOPERIDOL 5 MG/ML IM PRN (01:30)
[2018-06-09 04:38] LABS: MEAN CORPUSCULAR HEMOGLOBIN 26.3 pg (27.0-34.8); MEAN CORPUSCULAR HGB CONC 31.9 g/dL (32.4-35.8); MEAN CORPUSCULAR VOLUME 82.5 fL (80-100); MEAN PLATELET VOLUME 7.1 fL (7.4-10.4); PLATELET COUNT 242 x10^3/uL (130-400); RED BLOOD COUNT 4.71 x10^6/uL (3.82-5.3); RED CELL DISTRIBUTION WIDTH 14.6 % (9.6-15.2)
[2018-06-09 04:49] LABS: ANION GAP 11 mmol/L (5-15); CALCIUM 8.6 mg/dL (8.5-10.1); CHLORIDE 97 mmol/L (98-107); CREATININE 1.07 mg/dL (0.55-1.02)
[2018-06-09 05:40] LABS: BASOPHILS # (AUTO) 0.01 x10^3/uL (0-0.1); BASOPHILS % (AUTO) 0 % (0-1); EOSINOPHILS % (AUTO) 0 % (1-7); LYMPHOCYTES # (AUTO) 0.22 x10^3/uL (1-3.4); LYMPHOCYTES % (AUTO) 1 % (22-44); MD SCAN; MONOCYTES # (AUTO) 0.63 x10^3/uL (0.2-0.8); MONOCYTES % (AUTO) 4 % (2-9); NEUTROPHILS # (AUTO) 17.22 x10^3/uL (1.8-6.8); NEUTROPHILS % (AUTO) 95 % (42-75)
[2018-06-09] MEDS: INSULIN LISPRO 100 UNITS/ML, PEN SQ-INSULIN SCH ×4 (07:00→21:49)
[2018-06-09] MEDS: NS + 20MEQ KCL 1,000 ML IV SCH (08:00)
[2018-06-09] MEDS: LISINOPRIL 10 MG TABLET PO SCH (09:00)
[2018-06-09] MEDS: SENNA/DOCUSATE TABLET PO SCH (09:00)
[2018-06-09] MEDS: ACETAMINOPHEN 325 MG TABLET PO PRN (10:38)
[2018-06-09] MEDS: DEXAMETHASONE 4 MG/ML, 1ML IVPush SCH ×3 (10:38→21:50)
[2018-06-09] MEDS: SODIUM CHLORIDE 1 GM TABLET PO SCH ×3 (10:38→21:49)
[2018-06-09] MEDS: HYDROCHLOROTHIAZIDE 12.5 MG CAPSULE PO SCH (10:38)
[2018-06-09 18:44] VITALS: BP 139/71
[2018-06-09 21:02] LABS: ANION GAP 13 mmol/L (5-15); CALCIUM 8.7 mg/dL (8.5-10.1); CHLORIDE 99 mmol/L (98-107); CREATININE 0.95 mg/dL (0.55-1.02)
[2018-06-09] MEDS: INSULIN GLARGINE 100 UNITS/ML, PEN SQ-INSULIN SCH (21:49)
[2018-06-09] MEDS: ATORVASTATIN 10 MG TABLET PO SCH (21:49)
[2018-06-09] MEDS ORDERED: METOPROLOL 1 MG/ML, 5ML IVPush PRN (22:00)
[2018-06-10] MEDS: hydrALAzine 20 MG/ML, 1ML IV PRN ×2 (00:23→06:06)
[2018-06-10] MEDS: NS + 20MEQ KCL 1,000 ML IV SCH ×2 (06:14→17:14)
[2018-06-10] MEDS: DEXAMETHASONE 4 MG/ML, 1ML IVPush SCH ×3 (09:06→20:39)
[2018-06-10] MEDS: SODIUM CHLORIDE 1 GM TABLET PO SCH ×3 (09:06→20:39)
[2018-06-10] MEDS: HYDROCHLOROTHIAZIDE 12.5 MG CAPSULE PO SCH (09:06)
[2018-06-10] MEDS: LISINOPRIL 10 MG TABLET PO SCH (09:07)
[2018-06-10] MEDS: SENNA/DOCUSATE TABLET PO SCH (09:07)
[2018-06-10] MEDS: ONDANSETRON 2MG/ML, 2ML IV PRN (09:18)
[2018-06-10 10:12] LABS: ANION GAP 10 mmol/L (5-15); CALCIUM 8.4 mg/dL (8.5-10.1); CHLORIDE 101 mmol/L (98-107)
[2018-06-10] MEDS: INSULIN LISPRO 100 UNITS/ML, PEN SQ-INSULIN SCH ×4 (10:34→20:40)
[2018-06-10] MEDS: ACETAMINOPHEN 325 MG TABLET PO PRN (16:47)
[2018-06-10] MEDS: ATORVASTATIN 10 MG TABLET PO SCH (20:39)
[2018-06-10] MEDS: INSULIN GLARGINE 100 UNITS/ML, PEN SQ-INSULIN SCH (20:41)
[2018-06-10 21:55] LABS: ANION GAP 8 mmol/L (5-15); CHLORIDE 104 mmol/L (98-107); CREATININE 0.67 mg/dL (0.55-1.02)
[2018-06-11] MEDS: NS + 20MEQ KCL 1,000 ML IV SCH ×3 (04:23→20:44)
[2018-06-11 04:46] LABS: ANION GAP 6 mmol/L (5-15); CHLORIDE 106 mmol/L (98-107)
[2018-06-11] MEDS: ACETAMINOPHEN 325 MG TABLET PO PRN (07:35)
[2018-06-11] MEDS: SODIUM CHLORIDE 1 GM TABLET PO SCH ×3 (07:35→21:55)
[2018-06-11] MEDS: DEXAMETHASONE 4 MG/ML, 1ML IVPush SCH ×3 (07:35→21:00)
[2018-06-11] MEDS: hydrALAzine 20 MG/ML, 1ML IV PRN (07:35)
[2018-06-11] MEDS: SENNA/DOCUSATE TABLET PO SCH (07:35)
[2018-06-11] MEDS: HYDROCHLOROTHIAZIDE 12.5 MG CAPSULE PO SCH (07:36)
[2018-06-11] MEDS: INSULIN LISPRO 100 UNITS/ML, PEN SQ-INSULIN SCH ×4 (08:01→22:41)
[2018-06-11] MEDS: LISINOPRIL 10 MG TABLET PO SCH (08:09)
[2018-06-11] MEDS: HYDROcodone/APAP 5/325 TABLET PO PRN ×3 (08:24→20:44)
[2018-06-11] MEDS: ONDANSETRON 2MG/ML, 2ML IV PRN ×2 (09:40→17:47)
[2018-06-11 10:15] VITALS: BP 120/47
[2018-06-11 15:00] VITALS: BP 124/86
[2018-06-11 20:28] VITALS: BP 112/72
[2018-06-11] MEDS ORDERED: DEXAMETHASONE 4 MG/ML, 1ML IVPush SCH (21:00)
[2018-06-11 21:47] LABS: ANION GAP 5 mmol/L (5-15); CALCIUM 8.3 mg/dL (8.5-10.1); CHLORIDE 102 mmol/L (98-107); CREATININE 0.82 mg/dL (0.55-1.02)
[2018-06-11] MEDS: ATORVASTATIN 10 MG TABLET PO SCH (21:55)
[2018-06-11] MEDS: INSULIN GLARGINE 100 UNITS/ML, PEN SQ-INSULIN SCH (22:40)
[2018-06-12 00:12] VITALS: BP 152/73
[2018-06-12] MEDS: ONDANSETRON ODT 4 MG PO PRN ×2 (00:24→06:40)
[2018-06-12] MEDS: HYDROcodone/APAP 5/325 TABLET PO PRN ×2 (00:49→04:51)
[2018-06-12 04:24] VITALS: BP 146/83
[2018-06-12] MEDS: INSULIN LISPRO 100 UNITS/ML, PEN SQ-INSULIN SCH ×4 (08:04→21:33)
[2018-06-12] MEDS: SODIUM CHLORIDE 1 GM TABLET PO SCH ×3 (08:04→21:27)
[2018-06-12] MEDS: SENNA/DOCUSATE TABLET PO SCH (08:05)
[2018-06-12] MEDS: DEXAMETHASONE 1 MG TABLET PO SCH ×2 (08:05→21:27)
[2018-06-12] MEDS: HYDROCHLOROTHIAZIDE 12.5 MG CAPSULE PO SCH (08:08)
[2018-06-12] MEDS: LISINOPRIL 10 MG TABLET PO SCH (08:09)
[2018-06-12 08:11] VITALS: BP 131/83
[2018-06-12] MEDS: NS + 20MEQ KCL 1,000 ML IV SCH ×2 (09:00→23:04)
[2018-06-12 12:00] VITALS: BP 143/96
[2018-06-12 19:53] VITALS: BP 137/84
[2018-06-12] MEDS: ATORVASTATIN 10 MG TABLET PO SCH (21:27)
[2018-06-12] MEDS: INSULIN GLARGINE 100 UNITS/ML, PEN SQ-INSULIN SCH (21:33)
[2018-06-13 00:10] VITALS: BP 141/83
[2018-06-13 04:00] VITALS: BP 122/69
[2018-06-13] MEDS: HYDROcodone/APAP 5/325 TABLET PO PRN (06:01)
[2018-06-13] MEDS: ONDANSETRON ODT 4 MG PO PRN (06:01)
[2018-06-13] MEDS: INSULIN LISPRO 100 UNITS/ML, PEN SQ-INSULIN SCH ×4 (06:05→21:00)
[2018-06-13 08:04] VITALS: BP 152/84
[2018-06-13] MEDS: SODIUM CHLORIDE 1 GM TABLET PO SCH ×3 (08:10→21:25)
[2018-06-13] MEDS: LISINOPRIL 10 MG TABLET PO SCH (08:10)
[2018-06-13] MEDS: HYDROCHLOROTHIAZIDE 12.5 MG CAPSULE PO SCH (08:11)
[2018-06-13] MEDS: DEXAMETHASONE 1 MG TABLET PO SCH ×2 (08:11→21:25)
[2018-06-13] MEDS: SENNA/DOCUSATE TABLET PO SCH (08:11)
[2018-06-13] MEDS ORDERED: PINK LADY ENEMA 490 ML BOTTLE PR SCH (10:00)
[2018-06-13] MEDS: MAGNESIUM HYDROXIDE 8%, 30ML UDC PO SCH (10:14)
[2018-06-13 10:51] LABS: BASOPHILS % (AUTO) 0 % (0-1); EOSINOPHILS % (AUTO) 0 % (1-7); LYMPHOCYTES # (AUTO) 0.38 x10^3/uL (1-3.4); LYMPHOCYTES % (AUTO) 5 % (22-44); MD NO; MEAN CORPUSCULAR HEMOGLOBIN 26.7 pg (27.0-34.8); MEAN CORPUSCULAR HGB CONC 32.3 g/dL (32.4-35.8); MEAN CORPUSCULAR VOLUME 82.6 fL (80-100); MEAN PLATELET VOLUME 6.6 fL (7.4-10.4); MONOCYTES # (AUTO) 0.56 x10^3/uL (0.2-0.8); MONOCYTES % (AUTO) 7 % (2-9); NEUTROPHILS # (AUTO) 7.66 x10^3/uL (1.8-6.8); NEUTROPHILS % (AUTO) 89 % (42-75); PLATELET COUNT 248 x10^3/uL (130-400); RED BLOOD COUNT 4.45 x10^6/uL (3.82-5.3); RED CELL DISTRIBUTION WIDTH 14.4 % (9.6-15.2)
[2018-06-13 11:03] LABS: ANION GAP 8 mmol/L (5-15); CHLORIDE 100 mmol/L (98-107); CREATININE 0.75 mg/dL (0.55-1.02)
[2018-06-13 12:19] VITALS: BP 138/74
[2018-06-13] MEDS: NS + 20MEQ KCL 1,000 ML IV SCH (13:37)
[2018-06-13 16:39] VITALS: BP 145/84
[2018-06-13 20:03] VITALS: BP 153/81
[2018-06-13] MEDS: ATORVASTATIN 10 MG TABLET PO SCH (21:25)
[2018-06-13] MEDS: INSULIN GLARGINE 100 UNITS/ML, PEN SQ-INSULIN SCH (21:39)
[2018-06-14 00:08] VITALS: BP 133/78
[2018-06-14] MEDS: NS + 20MEQ KCL 1,000 ML IV SCH ×2 (04:03→17:09)
[2018-06-14 04:09] VITALS: BP 137/87
[2018-06-14] MEDS: INSULIN LISPRO 100 UNITS/ML, PEN SQ-INSULIN SCH ×4 (06:22→21:30)
[2018-06-14] MEDS: SENNA/DOCUSATE TABLET PO SCH (08:51)
[2018-06-14] MEDS: LISINOPRIL 10 MG TABLET PO SCH (08:51)
[2018-06-14] MEDS: SODIUM CHLORIDE 1 GM TABLET PO SCH ×3 (08:51→21:30)
[2018-06-14] MEDS: HYDROCHLOROTHIAZIDE 12.5 MG CAPSULE PO SCH (08:52)
[2018-06-14] MEDS: HYDROcodone/APAP 5/325 TABLET PO PRN ×4 (08:52→21:30)
[2018-06-14] MEDS: DEXAMETHASONE 1 MG TABLET PO SCH (09:04)
[2018-06-14] MEDS: ONDANSETRON ODT 4 MG PO PRN (09:05)
[2018-06-14 10:43] VITALS: BP 130/84
[2018-06-14 14:37] VITALS: BP 126/83
[2018-06-14 19:38] VITALS: BP 115/59
[2018-06-14] MEDS: ATORVASTATIN 10 MG TABLET PO SCH (21:30)
[2018-06-14] MEDS: INSULIN GLARGINE 100 UNITS/ML, PEN SQ-INSULIN SCH (21:31)
[2018-06-15] VITALS (7 sets, daily range): BP systolic 98–152; BP diastolic 65–89
[2018-06-15] MEDS: hydrALAzine 20 MG/ML, 1ML IV PRN (00:43)
[2018-06-15] MEDS: NS + 20MEQ KCL 1,000 ML IV SCH ×2 (05:08→15:00)
[2018-06-15] MEDS: HYDROcodone/APAP 5/325 TABLET PO PRN ×4 (05:24→23:02)
[2018-06-15] MEDS: INSULIN LISPRO 100 UNITS/ML, PEN SQ-INSULIN SCH ×4 (07:00→20:28)
[2018-06-15] MEDS: DEXAMETHASONE 1 MG TABLET PO SCH (08:23)
[2018-06-15] MEDS: HYDROCHLOROTHIAZIDE 12.5 MG CAPSULE PO SCH (08:23)
[2018-06-15] MEDS: SENNA/DOCUSATE TABLET PO SCH (08:23)
[2018-06-15] MEDS: SODIUM CHLORIDE 1 GM TABLET PO SCH ×3 (08:23→20:46)
[2018-06-15] MEDS: LISINOPRIL 10 MG TABLET PO SCH (08:24)
[2018-06-15] MEDS ORDERED: HYDR-3240 PO (16:49)
[2018-06-15] MEDS: ATORVASTATIN 10 MG TABLET PO SCH (20:27)
[2018-06-15] MEDS: INSULIN GLARGINE 100 UNITS/ML, PEN SQ-INSULIN SCH (20:28)
[2018-06-16 03:50] VITALS: BP 146/88
[2018-06-16] MEDS: HYDROcodone/APAP 5/325 TABLET PO PRN ×5 (04:03→20:38)
[2018-06-16] MEDS: INSULIN LISPRO 100 UNITS/ML, PEN SQ-INSULIN SCH ×4 (06:29→20:39)
[2018-06-16 07:19] VITALS: BP 120/80
[2018-06-16] MEDS: LISINOPRIL 10 MG TABLET PO SCH (08:18)
[2018-06-16] MEDS: SENNA/DOCUSATE TABLET PO SCH (08:18)
[2018-06-16] MEDS: DEXAMETHASONE 1 MG TABLET PO SCH (08:18)
[2018-06-16] MEDS: HYDROCHLOROTHIAZIDE 12.5 MG CAPSULE PO SCH (08:18)
[2018-06-16] MEDS: SODIUM CHLORIDE 1 GM TABLET PO SCH ×3 (08:19→20:38)
[2018-06-16 08:36] LABS: BASOPHILS # (AUTO) 0.03 x10^3/uL (0-0.1); BASOPHILS % (AUTO) 0 % (0-1); EOSINOPHILS # (AUTO) 0.16 x10^3/uL (0-0.4); EOSINOPHILS % (AUTO) 1 % (1-7); LYMPHOCYTES # (AUTO) 0.61 x10^3/uL (1-3.4); LYMPHOCYTES % (AUTO) 5 % (22-44); MD NO; MEAN CORPUSCULAR HEMOGLOBIN 26.1 pg (27.0-34.8); MEAN CORPUSCULAR HGB CONC 31.6 g/dL (32.4-35.8); MEAN CORPUSCULAR VOLUME 82.5 fL (80-100); MEAN PLATELET VOLUME 6.6 fL (7.4-10.4); MONOCYTES # (AUTO) 0.67 x10^3/uL (0.2-0.8); MONOCYTES % (AUTO) 6 % (2-9); NEUTROPHILS # (AUTO) 10.01 x10^3/uL (1.8-6.8); NEUTROPHILS % (AUTO) 87 % (42-75); PLATELET COUNT 268 x10^3/uL (130-400); RED BLOOD COUNT 4.67 x10^6/uL (3.82-5.3); RED CELL DISTRIBUTION WIDTH 14.7 % (9.6-15.2)
[2018-06-16 08:41] LABS: ANION GAP 8 mmol/L (5-15); CALCIUM 8.3 mg/dL (8.5-10.1); CHLORIDE 99 mmol/L (98-107); CREATININE 0.79 mg/dL (0.55-1.02)
[2018-06-16 12:13] VITALS: BP 156/79
[2018-06-16 16:07] VITALS: BP 130/82
[2018-06-16 19:44] VITALS: BP 126/82
[2018-06-16] MEDS: ATORVASTATIN 10 MG TABLET PO SCH (20:38)
[2018-06-16] MEDS: INSULIN GLARGINE 100 UNITS/ML, PEN SQ-INSULIN SCH (20:39)
[2018-06-16] MEDS: NS + 20MEQ KCL 1,000 ML IV SCH (21:00)
[2018-06-17 00:05] VITALS: BP 136/77
[2018-06-17] MEDS: HYDROcodone/APAP 5/325 TABLET PO PRN ×5 (00:44→19:54)
[2018-06-17 03:44] VITALS: BP 144/72
[2018-06-17] MEDS: INSULIN LISPRO 100 UNITS/ML, PEN SQ-INSULIN SCH ×4 (07:00→21:25)
[2018-06-17 07:47] VITALS: BP 149/87
[2018-06-17] MEDS: NS + 20MEQ KCL 1,000 ML IV SCH ×2 (09:30→22:06)
[2018-06-17] MEDS: SODIUM CHLORIDE 1 GM TABLET PO SCH ×3 (09:43→19:54)
[2018-06-17] MEDS: DEXAMETHASONE 1 MG TABLET PO SCH (09:43)
[2018-06-17] MEDS: LISINOPRIL 10 MG TABLET PO SCH (09:44)
[2018-06-17] MEDS: HYDROCHLOROTHIAZIDE 12.5 MG CAPSULE PO SCH (09:44)
[2018-06-17] MEDS: DOCUSATE 100 MG CAPSULE PO SCH ×2 (09:44→19:54)
[2018-06-17] MEDS: SENNA/DOCUSATE TABLET PO SCH (09:45)
[2018-06-17 13:46] VITALS: BP 147/84
[2018-06-17] MEDS: ATORVASTATIN 10 MG TABLET PO SCH (19:54)
[2018-06-17 20:23] VITALS: BP 137/79
[2018-06-17] MEDS: INSULIN GLARGINE 100 UNITS/ML, PEN SQ-INSULIN SCH (21:25)
[2018-06-18] MEDS: HYDROcodone/APAP 5/325 TABLET PO PRN ×6 (00:44→20:43)
[2018-06-18 01:01] VITALS: BP 127/79
[2018-06-18] MEDS: INSULIN LISPRO 100 UNITS/ML, PEN SQ-INSULIN SCH ×4 (06:46→20:42)
[2018-06-18 07:33] VITALS: BP 128/83
[2018-06-18] MEDS: DOCUSATE 100 MG CAPSULE PO SCH ×2 (08:17→20:42)
[2018-06-18] MEDS: SODIUM CHLORIDE 1 GM TABLET PO SCH ×3 (08:17→20:42)
[2018-06-18] MEDS: HYDROCHLOROTHIAZIDE 12.5 MG CAPSULE PO SCH (08:17)
[2018-06-18] MEDS: LISINOPRIL 10 MG TABLET PO SCH (08:17)
[2018-06-18] MEDS: SENNA/DOCUSATE TABLET PO SCH (08:18)
[2018-06-18 12:25] VITALS: BP 118/74
[2018-06-18 19:47] VITALS: BP 122/75
[2018-06-18] MEDS: ATORVASTATIN 10 MG TABLET PO SCH (20:42)
[2018-06-18] MEDS: INSULIN GLARGINE 100 UNITS/ML, PEN SQ-INSULIN SCH (20:42)
[2018-06-18] MEDS: NS + 20MEQ KCL 1,000 ML IV SCH (20:43)
[2018-06-19 00:49] VITALS: BP 131/65
[2018-06-19] MEDS: HYDROcodone/APAP 5/325 TABLET PO PRN ×3 (01:09→14:18)
[2018-06-19] MEDS: ACETAMINOPHEN 325 MG TABLET PO PRN (02:53)
[2018-06-19] MEDS: INSULIN LISPRO 100 UNITS/ML, PEN SQ-INSULIN SCH ×4 (06:48→22:14)
[2018-06-19] MEDS: SENNA/DOCUSATE TABLET PO SCH (08:29)
[2018-06-19] MEDS: DOCUSATE 100 MG CAPSULE PO SCH ×2 (08:30→22:10)
[2018-06-19] MEDS: LISINOPRIL 10 MG TABLET PO SCH (08:30)
[2018-06-19] MEDS: SODIUM CHLORIDE 1 GM TABLET PO SCH ×3 (08:30→22:09)
[2018-06-19] MEDS: HYDROCHLOROTHIAZIDE 12.5 MG CAPSULE PO SCH (08:30)
[2018-06-19] MEDS: NS + 20MEQ KCL 1,000 ML IV SCH ×2 (09:30→22:00)
[2018-06-19] MEDS ORDERED: MORPHINE SULFATE 4 MG/ML, 1ML ONE (12:26)
[2018-06-19] MEDS ORDERED: SODIUM CHLORIDE 0.9% 500 ML IVBOLUS ONE (12:30)
[2018-06-19] MEDS ORDERED: NITROGLYCERIN 0.4 MG BOTTLE (25 TABS) SL PRN (12:30)
[2018-06-19] MEDS ORDERED: morphine SULFATE 10 MG/ML, 1ML IVPush PRN (12:30)
[2018-06-19 12:47] LABS: BASOPHILS # (AUTO) 0.01 x10^3/uL (0-0.1); BASOPHILS % (AUTO) 0 % (0-1); EOSINOPHILS # (AUTO) 0.09 x10^3/uL (0-0.4); EOSINOPHILS % (AUTO) 1 % (1-7); LYMPHOCYTES # (AUTO) 0.53 x10^3/uL (1-3.4); LYMPHOCYTES % (AUTO) 6 % (22-44); MD NO; MEAN CORPUSCULAR HEMOGLOBIN 26.4 pg (27.0-34.8); MEAN CORPUSCULAR HGB CONC 32.1 g/dL (32.4-35.8); MEAN CORPUSCULAR VOLUME 82.3 fL (80-100); MEAN PLATELET VOLUME 6.3 fL (7.4-10.4); MONOCYTES # (AUTO) 0.48 x10^3/uL (0.2-0.8); MONOCYTES % (AUTO) 6 % (2-9); NEUTROPHILS % (AUTO) 87 % (42-75); PLATELET COUNT 265 x10^3/uL (130-400); RED BLOOD COUNT 4.32 x10^6/uL (3.82-5.3); RED CELL DISTRIBUTION WIDTH 14.5 % (9.6-15.2)
[2018-06-19 12:49] LABS: ANION GAP 8 mmol/L (5-15); CALCIUM 8.3 mg/dL (8.5-10.1); CHLORIDE 97 mmol/L (98-107); CREATININE 0.66 mg/dL (0.55-1.02)
[2018-06-19 12:53] LABS: TROPONIN I 0.026 ng/mL (0.000-0.045)
[2018-06-19] MEDS ORDERED: MORPHINE SULFATE 4 MG/ML, 1ML IVPush PRN (13:00)
[2018-06-19 14:57] VITALS: BP 133/68
[2018-06-19] MEDS ORDERED: NITROGLYCERIN 0.4 MG BOTTLE (25 TABS) SL ONE (16:06)
[2018-06-19] MEDS: MAGNESIUM HYDROXIDE 8%, 30ML UDC PO SCH (17:34)
[2018-06-19 20:30] VITALS: BP 124/74
[2018-06-19] MEDS: ATORVASTATIN 10 MG TABLET PO SCH (22:09)
[2018-06-19] MEDS: INSULIN GLARGINE 100 UNITS/ML, PEN SQ-INSULIN SCH (22:14)
[2018-06-20 01:30] VITALS: BP 129/73
[2018-06-20] MEDS: INSULIN LISPRO 100 UNITS/ML, PEN SQ-INSULIN SCH ×4 (07:00→20:46)
[2018-06-20 07:51] VITALS: BP 140/77
[2018-06-20] MEDS: DOCUSATE 100 MG CAPSULE PO SCH ×2 (08:44→20:43)
[2018-06-20] MEDS: HYDROCHLOROTHIAZIDE 12.5 MG CAPSULE PO SCH (08:44)
[2018-06-20] MEDS: ACETAMINOPHEN 325 MG TABLET PO PRN ×2 (08:44→16:30)
[2018-06-20] MEDS: SENNA/DOCUSATE TABLET PO SCH (08:44)
[2018-06-20] MEDS: LISINOPRIL 10 MG TABLET PO SCH (08:44)
[2018-06-20] MEDS: SODIUM CHLORIDE 1 GM TABLET PO SCH ×3 (08:44→20:44)
[2018-06-20] MEDS: NS + 20MEQ KCL 1,000 ML IV SCH ×2 (09:56→23:00)
[2018-06-20] MEDS: ONDANSETRON 2MG/ML, 2ML IV PRN (11:29)
[2018-06-20 12:10] VITALS: BP 121/79
[2018-06-20] MEDS: HYDROcodone/APAP 5/325 TABLET PO PRN ×2 (18:34→23:14)
[2018-06-20 18:52] VITALS: BP 123/86
[2018-06-20] MEDS: ATORVASTATIN 10 MG TABLET PO SCH (20:43)
[2018-06-20] MEDS: INSULIN GLARGINE 100 UNITS/ML, PEN SQ-INSULIN SCH (20:45)
[2018-06-21 02:16] VITALS: BP 132/85
[2018-06-21] MEDS: HYDROcodone/APAP 5/325 TABLET PO PRN ×2 (05:45→09:36)
[2018-06-21 06:37] VITALS: BP 112/75
[2018-06-21] MEDS: INSULIN LISPRO 100 UNITS/ML, PEN SQ-INSULIN SCH ×2 (07:00→11:00)
[2018-06-21] MEDS: SENNA/DOCUSATE TABLET PO SCH (09:00)
[2018-06-21] MEDS: DOCUSATE 100 MG CAPSULE PO SCH (09:00)
[2018-06-21] MEDS: HYDROCHLOROTHIAZIDE 12.5 MG CAPSULE PO SCH (09:28)
[2018-06-21] MEDS: ONDANSETRON ODT 4 MG PO PRN (09:29)
[2018-06-21] MEDS: SODIUM CHLORIDE 1 GM TABLET PO SCH (09:29)
[2018-06-21] MEDS: LISINOPRIL 10 MG TABLET PO SCH (09:29)
[2018-06-21] MEDS ORDERED: FAMOTIDINE 20 MG TABLET PO SCH (11:30)
[2018-06-21] MEDS: NS + 20MEQ KCL 1,000 ML IV SCH (11:30)
[2018-06-21 12:21] VITALS: BP 111/75
== END 2018-06-21 14:01 | DRG 26 ==
LOC: ORIP 05:40 → CCU 13:23 → 4NOR 06-11 17:34 → 3NW 06-20 10:16
PROVIDERS: ADMIT Neurological Surgery; ATTEND Neurological Surgery
PROC: 03HY32Z Insertion of Monitoring Device into Upper Artery, Percutaneous Approach (ICD-10-PCS; 2018-06-08)
PROC: 0NU70JZ Supplement Occipital Bone with Synthetic Substitute, Open Approach (ICD-10-PCS; 2018-06-08)
PROC: 00U207Z Supplement Dura Mater with Autologous Tissue Substitute, Open Approach (ICD-10-PCS; 2018-06-08)
PROC: 00B70ZZ Excision of Cerebral Hemisphere, Open Approach (ICD-10-PCS; principal; 2018-06-08 07:30)
DX: C79.31 Secondary malignant neoplasm of brain (principal); C56.9 Malignant neoplasm of unspecified ovary; E11.9 Type 2 diabetes mellitus without complications; E78.5 Hyperlipidemia, unspecified; I10 Essential (primary) hypertension; R00.0 Tachycardia, unspecified; Z85.118 Personal history of other malignant neoplasm of bronchus and lung; Z85.3 Personal history of malignant neoplasm of breast; Z87.891 Personal history of nicotine dependence; Z90.710 Acquired absence of both cervix and uterus; Z98.1 Arthrodesis status; Z88.0 Allergy status to penicillin; J45.909 Unspecified asthma, uncomplicated; Z79.4 Long term (current) use of insulin
CPT/HCPCS: 36415; 70450; 80048; 82962; 84484; 85025; 86850; 86900; 86923; 87081; 88305; 88331; 93005; C1713; G0378; J0690; J0697; J1100; J1170; J2250; J2270; J2405; J2704; J3010; J3480; Q0162; 92523-GN; C1781; G0515-GN; J0360; J1815; J1940; J2370; J3490; J7030; J7050; J7120; Q9968

== ENCOUNTER → 2018-06-22 | Outpatient (CLI) | payer OTHER ==
[~2018-06-22] MED LIST changes: +GADOBUTROL 7.5 MMOL/7.5 ML PFS ONE; +HYDR-3240 PO
== END | disposition home or self-care (01) ==
LOC: CFH 11:33
PROVIDERS: ATTEND Radiology Radiation Oncology
DX: C79.31 Secondary malignant neoplasm of brain (principal); C34.90 Malignant neoplasm of unspecified part of unspecified bronchus or lung; G93.89 Other specified disorders of brain
CPT/HCPCS: 70553; A9585